=== PATIENT | female | born 1945 | race Caucasian/White ===

== ENCOUNTER 2016-06-26 13:14 | Outpatient (RCR) | payer MEDICARE, OTHER ==
--- OUTSIDE RECORDS SUMMARY | 2016-06-26 13:18 | XMS REPORT | Continuity of Care Document ---
Author Author [facility] Organization [facility] Address Unknown Phone Unavailable Allergies Medications Problems Date Dx Coded Attending Type Code Diagnosis Diagnosed By 03/17/2014 Ot 204.10 03/17/2014 Ot 287.5 03/17/2014 Ot V58.66 03/17/2014 Ot V58.67 03/17/2014 Ot V58.69 03/17/2014 Ot 204.10 03/17/2014 Ot 287.5 03/17/2014 Ot V58.66 03/17/2014 Ot V58.67 03/17/2014 Ot V58.69 03/17/2014 Ot 204.10 03/17/2014 Ot 287.5 03/17/2014 Ot V58.66 03/17/2014 Ot V58.67 03/17/2014 Ot V58.69 03/17/2014 Ot 204.10 03/17/2014 Ot 287.5 03/17/2014 Ot V58.66 03/17/2014 Ot V58.67 03/17/2014 Ot V58.69 03/17/2014 Ot 204.10 03/17/2014 Ot 287.5 03/17/2014 Ot V58.66 03/17/2014 Ot V58.67 03/17/2014 Ot V58.69 03/17/2014 Ot 204.10 03/17/2014 Ot 287.5 03/17/2014 Ot V15.82 03/17/2014 Ot V58.66 03/17/2014 Ot V58.67 03/17/2014 Ot V58.69 03/17/2014 Ot 204.10 03/17/2014 Ot 250.00 03/17/2014 Ot 287.5 03/17/2014 Ot V58.66 03/17/2014 Ot V58.67 03/17/2014 Ot V58.69 03/17/2014 Ot 204.10 03/17/2014 Ot 287.5 03/17/2014 Ot V58.66 03/17/2014 Ot V58.67 03/17/2014 Ot V58.69 03/17/2014 Ot 204.10 03/17/2014 Ot 287.5 03/17/2014 Ot V58.66 03/17/2014 Ot V58.67 03/17/2014 Ot V58.69 03/17/2014 Ot 204.10 03/17/2014 Ot 287.5 03/17/2014 Ot V58.66 03/17/2014 Ot V58.67 03/17/2014 Ot V58.69 03/17/2014 MARVIN, BOBAN N Ot 204.10 03/17/2014 MARVIN, BOBAN N Ot 250.00 03/17/2014 MARVIN, BOBAN N Ot 287.5 03/17/2014 MARVIN, BOBAN N Ot 356.9 03/17/2014 MARVIN, BOBAN N Ot 401.9 03/17/2014 MARVIN, BOBAN N Ot V58.66 03/17/2014 MARVIN, BOBAN N Ot V58.67 03/17/2014 MARVIN, BOBAN N Ot V58.69 03/17/2014 MARVIN, BOBAN N Ot 204.10 03/17/2014 MARVIN, BOBAN N Ot 250.00 03/17/2014 MARVIN, BOBAN N Ot 287.5 03/17/2014 MARVIN, BOBAN N Ot 356.9 03/17/2014 MARVIN, BOBAN N Ot 401.9 03/17/2014 MARVIN, BOBAN N Ot V58.66 03/17/2014 MARVIN, BOBAN N Ot V58.67 03/17/2014 MARVIN, BOBAN N Ot V58.69 03/20/2014 MARVIN, BOBAN N Ot 204.10 03/20/2014 MARVIN, BOBAN N Ot 250.00 03/20/2014 MARVIN, BOBAN N Ot 287.5 03/20/2014 MARVIN, BOBAN N Ot 356.9 03/20/2014 MARVIN, BOBAN N Ot V58.67 03/20/2014 MARVIN, BOBAN N Ot V58.69 04/13/2014 MARVIN, BOBAN N Ot 204.10 04/13/2014 MARVIN, BOBAN N Ot 250.00 04/13/2014 MARVIN, BOBAN N Ot 287.5 04/13/2014 MARVIN, BOBAN N Ot 356.9 04/13/2014 MARVIN, BOBAN N Ot V58.67 04/13/2014 MARVIN, BOBAN N Ot V58.69 04/27/2014 MARVIN, BOBAN N Ot 204.10 04/27/2014 MARVIN, BOBAN N Ot 250.00 04/27/2014 MARVIN, BOBAN N Ot 287.5 04/27/2014 MARVIN, BOBAN N Ot 356.9 04/27/2014 MARVIN, BOBAN N Ot V58.67 04/27/2014 MARVIN, BOBAN N Ot V58.69 09/09/2014 MARVIN, BOBAN N Ot 204.10 09/09/2014 MARVIN, BOBAN N Ot 250.00 09/09/2014 MARVIN, BOBAN N Ot 287.5 09/09/2014 MARVIN, BOBAN N Ot 356.9 09/09/2014 MARVIN, BOBAN N Ot V58.67 09/09/2014 MARVIN, BOBAN N Ot V58.69 09/09/2014 MARVIN, BOBAN N Ot 204.10 09/09/2014 MARVIN, BOBAN N Ot 250.00 09/09/2014 MARVIN, BOBAN N Ot 287.5 09/09/2014 MARVIN, BOBAN N Ot 356.9 09/09/2014 MARVIN, BOBAN N Ot V58.67 09/09/2014 MARVIN, BOBAN N Ot V58.69 09/28/2014 MARVIN, BOBAN N Ot 204.10 09/28/2014 MARVIN, BOBAN N Ot 250.00 09/28/2014 MARVIN, BOBAN N Ot 287.5 09/28/2014 MARVIN, BOBAN N Ot 356.9 09/28/2014 MARVIN, BOBAN N Ot V58.67 09/28/2014 MARVIN, BOBAN N Ot V58.69 10/14/2014 MARVIN, BOBAN N Ot 204.10 10/14/2014 MARVIN, BOBAN N Ot 250.00 10/14/2014 MARVIN, BOBAN N Ot 287.5 10/14/2014 MARVIN, BOBAN N Ot 356.9 10/14/2014 MARVIN, BOBAN N Ot V58.67 10/14/2014 MARVIN, BOBAN N Ot V58.69 10/11/2015 MARVIN, BOBAN N Ot C91.10 CHRONIC LYMPHOCYTIC LEUK OF B-CELL TYPE 10/11/2015 MARVINTOÑO KELLOGG N Ot D69.6 THROMBOCYTOPENIA, UNSPECIFIED 10/11/2015 MARVINTOÑO N Ot E11.9 TYPE 2 DIABETES MELLITUS WITHOUT COMPLIC 10/11/2015 MARVINTOÑO N Ot E78.0 PURE HYPERCHOLESTEROLEMIA 10/11/2015 MARVINTOÑO N Ot I10 ESSENTIAL (PRIMARY) HYPERTENSION 10/11/2015 MARVINNORANIKO N Ot Z79.899 OTHER RESIDENTIAL (CURRENT) DRUG THERAPY 10/11/2015 TOÑO WONG N Ot C91.10 CHRONIC LYMPHOCYTIC LEUK OF B-CELL TYPE 10/11/2015 MARVINTOÑO N Ot D69.6 THROMBOCYTOPENIA, UNSPECIFIED 10/11/2015 MARVINNORANIKO N Ot E11.9 TYPE 2 DIABETES MELLITUS WITHOUT COMPLIC 10/11/2015 MARVINTOÑO N Ot E78.0 PURE HYPERCHOLESTEROLEMIA 10/11/2015 MARVIN BOBAN N Ot I10 ESSENTIAL (PRIMARY) HYPERTENSION 10/11/2015 MARVINNORANIKO N Ot 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 11/18/2015 TOÑO WONG N Ot C91.10 CHRONIC LYMPHOCYTIC LEUK OF B-CELL TYPE 11/18/2015 MARVINTOÑO N Ot D69.6 THROMBOCYTOPENIA, UNSPECIFIED 11/18/2015 MARVINTOÑO N Ot E11.9 TYPE 2 DIABETES MELLITUS WITHOUT COMPLIC 11/18/2015 MARVINTOÑO N Ot E78.0 PURE HYPERCHOLESTEROLEMIA 11/18/2015 MARVINTOÑO N Ot I10 ESSENTIAL (PRIMARY) HYPERTENSION 11/18/2015 MARVIN TOÑO N Ot Z79.899 OTHER RESIDENTIAL (CURRENT) DRUG THERAPY 11/23/2015 TOÑO WONG N Ot C91.10 CHRONIC LYMPHOCYTIC LEUK OF B-CELL TYPE 11/23/2015 MARVINTOÑO N Ot D69.6 THROMBOCYTOPENIA, UNSPECIFIED 11/23/2015 MARVINNORANIKO N Ot E11.9 TYPE 2 DIABETES MELLITUS WITHOUT COMPLIC 11/23/2015 MARVINNORAAN N Ot E78.0 PURE HYPERCHOLESTEROLEMIA 11/23/2015 MARVIN BOBAN N Ot I10 ESSENTIAL (PRIMARY) HYPERTENSION 11/23/2015 MARVIN NORAAN N Ot Z79.899 OTHER RESIDENTIAL (CURRENT) DRUG THERAPY 12/17/2015 TOÑO WONG N Ot C91.10 CHRONIC LYMPHOCYTIC LEUK OF B-CELL TYPE 12/17/2015 MARVINTOÑO N Ot D69.6 THROMBOCYTOPENIA, UNSPECIFIED 12/17/2015 MARVINNORAAN N Ot E11.9 TYPE 2 DIABETES MELLITUS WITHOUT COMPLIC 12/17/2015 MARVINTOÑO N Ot E78.0 PURE HYPERCHOLESTEROLEMIA 12/17/2015 MARVINTOÑO N Ot I10 ESSENTIAL (PRIMARY) HYPERTENSION 12/17/2015 MARVINTOÑO N Ot Z79.899 OTHER RESIDENTIAL (CURRENT) DRUG THERAPY 12/30/2015 MARVINTOÑO KELLOGG N Ot C91.10 CHRONIC LYMPHOCYTIC LEUK OF B-CELL TYPE 12/30/2015 MARVINTOÑO N Ot D69.6 THROMBOCYTOPENIA, UNSPECIFIED 12/30/2015 MARVINTOÑO N Ot E11.9 TYPE 2 DIABETES MELLITUS WITHOUT COMPLIC 12/30/2015 MARVINTOÑO N Ot E78.0 PURE HYPERCHOLESTEROLEMIA 12/30/2015 MARVIN, BOBAN N Ot I10 ESSENTIAL (PRIMARY) HYPERTENSION 12/30/2015 MARVINTOÑO N Ot Z79.899 OTHER RESIDENTIAL (CURRENT) DRUG THERAPY 01/07/2016 TOÑO WONG N Ot C91.10 CHRONIC LYMPHOCYTIC LEUK OF B-CELL TYPE 01/07/2016 MARVINTOÑO N Ot D69.6 THROMBOCYTOPENIA, UNSPECIFIED 01/07/2016 MARVIN BOBAN N Ot E11.9 TYPE 2 DIABETES MELLITUS WITHOUT COMPLIC 01/07/2016 MARVINTOÑO N Ot E78.0 PURE HYPERCHOLESTEROLEMIA 01/07/2016 MARVIN BOBNIKO N Ot I10 ESSENTIAL (PRIMARY) HYPERTENSION 01/07/2016 MARVINTOÑO N Ot Z79.899 OTHER RESIDENTIAL (CURRENT) DRUG THERAPY 01/10/2016 MARVINTOÑO N Ot C91.10 CHRONIC LYMPHOCYTIC LEUK OF B-CELL TYPE 01/10/2016 MARVINTOÑO N Ot D69.6 THROMBOCYTOPENIA, UNSPECIFIED 01/10/2016 MARVIN BOBAN N Ot E11.9 TYPE 2 DIABETES MELLITUS WITHOUT COMPLIC 01/10/2016 MARVIN BOBAN N Ot E78.0 PURE HYPERCHOLESTEROLEMIA 01/10/2016 MARVIN BOBAN N Ot I10 ESSENTIAL (PRIMARY) HYPERTENSION 01/10/2016 TOÑO WONG N Ot Z79.899 OTHER RESIDENTIAL (CURRENT) DRUG THERAPY 04/03/2016 TOÑO WONG N Ot C91.10 CHRONIC LYMPHOCYTIC LEUK OF B-CELL TYPE 04/03/2016 MARVINTOÑO N Ot D69.6 THROMBOCYTOPENIA, UNSPECIFIED 04/03/2016 MARVINTOÑO N Ot E11.9 TYPE 2 DIABETES MELLITUS WITHOUT COMPLIC 04/03/2016 MARVINTOÑO N Ot E78.00 PURE HYPERCHOLESTEROLEMIA, UNSPECIFIED 04/03/2016 MARVINTOÑO N Ot I10 ESSENTIAL (PRIMARY) HYPERTENSION 04/03/2016 MARVINTOÑO N Ot 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 04/18/2016 TOÑO WONG N Ot C91.10 CHRONIC LYMPHOCYTIC LEUK OF B-CELL TYPE 04/18/2016 MARVINTOÑO N Ot D69.6 THROMBOCYTOPENIA, UNSPECIFIED 04/18/2016 MARVINTOÑO N Ot E11.9 TYPE 2 DIABETES MELLITUS WITHOUT COMPLIC 04/18/2016 MARVINTOÑO N Ot E78.00 PURE HYPERCHOLESTEROLEMIA, UNSPECIFIED 04/18/2016 MARVINTOÑO N Ot I10 ESSENTIAL (PRIMARY) HYPERTENSION 04/18/2016 MARVINTOÑO N Ot Z79.899 OTHER RESIDENTIAL (CURRENT) DRUG THERAPY 04/21/2016 TOÑO WONG N Ot C91.10 CHRONIC LYMPHOCYTIC LEUK OF B-CELL TYPE 04/21/2016 MARVINTOÑO N Ot D69.6 THROMBOCYTOPENIA, UNSPECIFIED 04/21/2016 MARVINTOÑO N Ot E11.9 TYPE 2 DIABETES MELLITUS WITHOUT COMPLIC 04/21/2016 MARVINTOÑO N Ot E78.00 PURE HYPERCHOLESTEROLEMIA, UNSPECIFIED 04/21/2016 MARVINTOÑO N Ot I10 ESSENTIAL (PRIMARY) HYPERTENSION 04/21/2016 MARVINTOÑO N Ot 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 Visit Date/Time Discharge Status Pt. Type Provider Facility Loc./Unit Complaint [id number] 09/01/2014 12:57:00 2014 23:59:59 CLS Outpatient TOÑO WONG [facility] [id number] 03/17/2014 10:03:00 2013 23:59:59 CLS Outpatient TOÑO WONG N [facility] FS [id number] 09/09/2013 09:33:00 2013 23:59:59 CLS Outpatient TOÑO WONG N [facility] FS [id number] 03/11/2013 14:14:00 2012 23:59:59 CLS Outpatient TOÑO WONG N [facility] FS [id number] 06/26/2016 08:37:00 PEN Preadmit TOÑO WONG N [facility] ONC [id number] 03/28/2016 11:28:00 ACT Outpatient TOÑO WONG N [facility] FS [id number] 12/28/2015 14:33:00 ACT Outpatient TOÑO WONG N [facility] FS [id number] 10/05/2015 16:31:00 ACT Outpatient TOÑO WONG N [facility] FS [id number] 03/30/2015 13:49:00 ACT Outpatient TOÑO WONG N [facility] FS [id number] 08/20/2012 13:36:00 Document Registration [id number] 02/20/2012 14:19:00 Document Registration [id number] 10/03/2011 13:35:00 Document Registration [id number] 03/28/2011 14:53:00 Document Registration [id number] 09/20/2010 15:08:00 Document Registration [id number] 03/22/2010 13:53:00 Document Registration [id number] 09/21/2009 14:17:00 Document Registration [id number] 06/01/2009 11:04:00 Document Registration [id number] 02/23/2009 14:32:00 Document Registration [id number] 11/24/2008 16:16:00 Document Registration
[2016-06-26 13:31] LABS: MEAN CORPUSCULAR HEMOGLOBIN 29 PG (25-34); MEAN CORPUSCULAR HGB CONC 33 G/DL (32-36); MEAN CORPUSCULAR VOLUME 87 FL (80-99); MEAN PLATELET VOLUME 9.8 FL (7.4-10.4); PLATELET COUNT 114 10^3/uL (130-400); RED CELL DISTRIBUTION WIDTH 13.4 % (10.0-14.5)
[2016-06-26 13:42] LABS: WHITE BLOOD COUNT 42.2 10^3/uL (4.3-11.0)
[2016-06-26 14:20] LABS: ALANINE AMINOTRANSFERASE 25 U/L (0-55); ALBUMIN 4.1 G/DL (3.2-4.5); ANION GAP 10 MMOL/L (5-14); ASPARTATE AMINO TRANSFERASE 38 U/L (5-34); BILIRUBIN,TOTAL 0.6 MG/DL (0.1-1.0); BLOOD UREA NITROGEN 21 MG/DL (7-18); BUN/CREATININE RATIO 27; CALCIUM 8.8 MG/DL (8.5-10.1); CARBON DIOXIDE 23 MMOL/L (21-32); CHLORIDE 108 MMOL/L (98-107); CREATININE SERUM 0.78 MG/DL (0.60-1.30); GFR ESTIMATED > 60; GLUCOSE 108 MG/DL (70-105); LACTATE DEHYDROGENASE 392 U/L (125-220); SODIUM 141 MMOL/L (135-145); TOTAL PROTEIN 5.8 G/DL (6.4-8.2)
[2016-06-26 14:24] LABS: POTASSIUM 5.1 MMOL/L (3.6-5.0)
[2016-06-26 15:46] LABS: ATYPICAL LYMPHOCYTES 72 %; BAND NEUTROPHILS 0 %; BASOPHILS % (MANUAL) 0 %; EOSINOPHILS % (MANUAL) 1 %; LYMPHOCYTES % (MANUAL) 5 %; NEUTROPHILS % (MANUAL) 20 %; PATH WILL NEED TO REVIEW SMEAR PATH TO REVIEW
[2016-06-27 07:31] LABS: RETICULOCYTE % 0.91 % (0.50-2.40)
== END 2016-09-24 | disposition home or self-care (01) ==
LOC: ONC 13:14
PROVIDERS: ATTEND Internal Medicine Hematology & Oncology
DX: C91.10 Chronic lymphocytic leukemia of B-cell type not having achieved remission (principal); D69.6 Thrombocytopenia, unspecified; E11.9 Type 2 diabetes mellitus without complications; I10 Essential (primary) hypertension; E78.00 Pure hypercholesterolemia, unspecified; Z79.899 Other long term (current) drug therapy
CPT/HCPCS: 36415; 80053; 83615; 85007; 85025; 85027; 85045; 99213

== ENCOUNTER → 2016-09-19 | Outpatient (CLI) | payer MEDICARE, OTHER | LOC: FS 10:49 | PROVIDERS: ATTEND Internal Medicine Hematology & Oncology | DX: C91.10 Chronic lymphocytic leukemia of B-cell type not having achieved remission (principal); D69.6 Thrombocytopenia, unspecified; E11.40 Type 2 diabetes mellitus with diabetic neuropathy, unspecified; I10 Essential (primary) hypertension; E78.00 Pure hypercholesterolemia, unspecified; Z79.899 Other long term (current) drug therapy | CPT/HCPCS: 99213 ==

== ENCOUNTER 2017-02-06 09:36 | Outpatient (RCR) | payer MEDICARE, OTHER | END 2017-05-07 | disposition home or self-care (01) | LOC: ONC 09:36 | PROVIDERS: ATTEND Internal Medicine Hematology & Oncology | DX: C91.10 Chronic lymphocytic leukemia of B-cell type not having achieved remission (principal); D69.6 Thrombocytopenia, unspecified; E11.40 Type 2 diabetes mellitus with diabetic neuropathy, unspecified; I10 Essential (primary) hypertension; E78.00 Pure hypercholesterolemia, unspecified; Z79.899 Other long term (current) drug therapy | CPT/HCPCS: 99213 ==

== ENCOUNTER 2017-08-01 10:34 | Outpatient (RCR) | payer MEDICARE, OTHER ==
[2017-08-01 11:01] LABS: BASOPHILS # (AUTO) 0.1 10^3/uL (0.0-0.1); BASOPHILS % (AUTO) 0 % (0-10); EOSINOPHILS # (AUTO) 0.4 10^3/uL (0.0-0.3); EOSINOPHILS % (AUTO) 1 % (0-10); HEMATOCRIT 43 % (35-52); HEMOGLOBIN 13.9 G/DL (11.5-16.0); LYMPHOCYTES # (AUTO) 27.2 X 10^3 (1.0-4.0); LYMPHOCYTES % (AUTO) 81 % (12-44); MEAN CORPUSCULAR HEMOGLOBIN 28 PG (25-34); MEAN CORPUSCULAR HGB CONC 33 G/DL (32-36); MEAN CORPUSCULAR VOLUME 86 FL (80-99); MONOCYTES # (AUTO) 1.6 X 10^3 (0.0-1.0); MONOCYTES % (AUTO) 5 % (0-12); NEUTROPHILS # (AUTO) 4.2 X 10^3 (1.8-7.8); NEUTROPHILS % (AUTO) 12 % (42-75); PLATELET COUNT 90 10^3/uL (130-400); RED BLOOD COUNT 4.97 10^6/uL (4.35-5.85); RED CELL DISTRIBUTION WIDTH 13.8 % (10.0-14.5)
[2017-08-01 11:04] LABS: WHITE BLOOD COUNT 32.3 10^3/uL (4.3-11.0)
[2017-08-01 11:16] LABS: ALANINE AMINOTRANSFERASE 20 U/L (0-55); ALBUMIN 4.2 GM/DL (3.2-4.5); ALKALINE PHOSPHATASE 69 U/L (40-136); BILIRUBIN,TOTAL 0.8 MG/DL (0.1-1.0); BUN/CREATININE RATIO 28; CARBON DIOXIDE 30 MMOL/L (21-32); CHLORIDE 108 MMOL/L (98-107); CREATININE SERUM 0.68 MG/DL (0.60-1.30); GFR ESTIMATED > 60; GLUCOSE 113 MG/DL (70-105); POTASSIUM 4.6 MMOL/L (3.6-5.0); SODIUM 143 MMOL/L (135-145); TOTAL PROTEIN 5.7 GM/DL (6.4-8.2)
== END 2017-10-30 | disposition home or self-care (01) ==
LOC: ONC 10:34
PROVIDERS: ATTEND Internal Medicine Hematology & Oncology
DX: C91.10 Chronic lymphocytic leukemia of B-cell type not having achieved remission (principal); D69.6 Thrombocytopenia, unspecified; E11.40 Type 2 diabetes mellitus with diabetic neuropathy, unspecified; I10 Essential (primary) hypertension; E78.00 Pure hypercholesterolemia, unspecified; Z79.899 Other long term (current) drug therapy
CPT/HCPCS: 36415; 80053; 82784; 83615; 85025; 99213

== ENCOUNTER 2018-02-06 12:58 | Outpatient (RCR) | payer MEDICARE, OTHER ==
[2018-02-06 12:58] LABS: BASOPHILS # (AUTO) 0.1 10^3/uL (0.0-0.1); BASOPHILS % (AUTO) 0 % (0-10); EOSINOPHILS # (AUTO) 0.2 10^3/uL (0.0-0.3); EOSINOPHILS % (AUTO) 1 % (0-10); HEMATOCRIT 41 % (35-52); HEMOGLOBIN 13.4 G/DL (11.5-16.0); LYMPHOCYTES # (AUTO) 27.3 X 10^3 (1.0-4.0); LYMPHOCYTES % (AUTO) 83 % (12-44); MEAN CORPUSCULAR HEMOGLOBIN 28 PG (25-34); MEAN CORPUSCULAR HGB CONC 33 G/DL (32-36); MEAN CORPUSCULAR VOLUME 86 FL (80-99); MEAN PLATELET VOLUME 10.3 FL (7.4-10.4); MONOCYTES # (AUTO) 1.4 X 10^3 (0.0-1.0); MONOCYTES % (AUTO) 4 % (0-12); NEUTROPHILS # (AUTO) 3.9 X 10^3 (1.8-7.8); NEUTROPHILS % (AUTO) 12 % (42-75); PLATELET COUNT 107 10^3/uL (130-400); RED BLOOD COUNT 4.77 10^6/uL (4.35-5.85)
[2018-02-06 13:01] LABS: WHITE BLOOD COUNT 32.9 10^3/uL (4.3-11.0)
[2018-02-06 13:21] LABS: ALANINE AMINOTRANSFERASE 23 U/L (0-55); ALBUMIN 4.1 GM/DL (3.2-4.5); ALKALINE PHOSPHATASE 75 U/L (40-136); BILIRUBIN,TOTAL 0.7 MG/DL (0.1-1.0); BUN/CREATININE RATIO 27; CARBON DIOXIDE 26 MMOL/L (21-32); CHLORIDE 107 MMOL/L (98-107); CREATININE SERUM 0.74 MG/DL (0.60-1.30); GFR ESTIMATED > 60; GLUCOSE 82 MG/DL (70-105); POTASSIUM 4.6 MMOL/L (3.6-5.0); SODIUM 141 MMOL/L (135-145); TOTAL PROTEIN 5.6 GM/DL (6.4-8.2)
== END 2018-05-07 | disposition home or self-care (01) ==
LOC: ONC 12:58
PROVIDERS: ATTEND Internal Medicine Hematology & Oncology
DX: C91.10 Chronic lymphocytic leukemia of B-cell type not having achieved remission (principal); D69.6 Thrombocytopenia, unspecified; E11.40 Type 2 diabetes mellitus with diabetic neuropathy, unspecified; I10 Essential (primary) hypertension; E78.00 Pure hypercholesterolemia, unspecified; Z79.899 Other long term (current) drug therapy
CPT/HCPCS: 36415; 80053; 82784; 83615; 85025; 99213

== ENCOUNTER → 2018-08-07 | Outpatient (CLI) | payer MEDICARE, OTHER ==
[2018-08-07 10:33] LABS: BASOPHILS # (AUTO) 0.1 10^3/uL (0.0-0.1); BASOPHILS % (AUTO) 0 % (0-10); EOSINOPHILS # (AUTO) 0.6 10^3/uL (0.0-0.3); EOSINOPHILS % (AUTO) 2 % (0-10); HEMATOCRIT 43 % (35-52); HEMOGLOBIN 13.6 G/DL (11.5-16.0); LYMPHOCYTES # (AUTO) 31.5 X 10^3 (1.0-4.0); LYMPHOCYTES % (AUTO) 84 % (12-44); MEAN CORPUSCULAR HEMOGLOBIN 28 PG (25-34); MEAN CORPUSCULAR HGB CONC 32 G/DL (32-36); MEAN CORPUSCULAR VOLUME 87 FL (80-99); MEAN PLATELET VOLUME 10.2 FL (7.4-10.4); MONOCYTES # (AUTO) 1.5 X 10^3 (0.0-1.0); MONOCYTES % (AUTO) 4 % (0-12); NEUTROPHILS # (AUTO) 3.9 X 10^3 (1.8-7.8); NEUTROPHILS % (AUTO) 10 % (42-75); PLATELET COUNT 96 10^3/uL (130-400); RED CELL DISTRIBUTION WIDTH 14.2 % (10.0-14.5)
[2018-08-07 10:34] LABS: WHITE BLOOD COUNT 37.5 10^3/uL (4.3-11.0)
[2018-08-07 10:55] LABS: ALANINE AMINOTRANSFERASE 20 U/L (0-55); ALBUMIN 4.2 GM/DL (3.2-4.5); ALKALINE PHOSPHATASE 74 U/L (40-136); BILIRUBIN,TOTAL 0.8 MG/DL (0.1-1.0); BUN/CREATININE RATIO 26; CALCIUM 10.2 MG/DL (8.5-10.1); CARBON DIOXIDE 29 MMOL/L (21-32); CHLORIDE 107 MMOL/L (98-107); CREATININE SERUM 0.82 MG/DL (0.60-1.30); GFR ESTIMATED > 60; GLUCOSE 196 MG/DL (70-105); POTASSIUM 4.9 MMOL/L (3.6-5.0); SODIUM 147 MMOL/L (135-145)
== END ==
LOC: EDSTATUS 05-08 10:46 → ONC 10:53
PROVIDERS: ATTEND Internal Medicine Hematology & Oncology
DX: C91.10 Chronic lymphocytic leukemia of B-cell type not having achieved remission (principal); D69.6 Thrombocytopenia, unspecified; E11.40 Type 2 diabetes mellitus with diabetic neuropathy, unspecified; I10 Essential (primary) hypertension; E78.00 Pure hypercholesterolemia, unspecified; Z79.899 Other long term (current) drug therapy
CPT/HCPCS: 36415; 80053; 83615; 85025; 99213

== ENCOUNTER → 2019-02-04 | Outpatient (CLI) | payer MEDICARE, OTHER | LOC: ONC 09:49 | PROVIDERS: ATTEND Internal Medicine Hematology & Oncology | DX: C91.10 Chronic lymphocytic leukemia of B-cell type not having achieved remission (principal); D69.6 Thrombocytopenia, unspecified; E11.40 Type 2 diabetes mellitus with diabetic neuropathy, unspecified; I10 Essential (primary) hypertension; E78.00 Pure hypercholesterolemia, unspecified; Z79.899 Other long term (current) drug therapy | CPT/HCPCS: 99213 ==

== ENCOUNTER → 2019-10-16 | Outpatient (CLI) | payer MEDICARE, OTHER ==
[2019-10-16 13:04] LABS: BASOPHILS # (AUTO) 0.1 10^3/uL (0.0-0.1); BASOPHILS % (AUTO) 0 % (0-10); EOSINOPHILS # (AUTO) 0.2 10^3/uL (0.0-0.3); EOSINOPHILS % (AUTO) 1 % (0-10); HEMATOCRIT 41 % (35-52); LYMPHOCYTES # (AUTO) 31.7 X 10^3 (1.0-4.0); LYMPHOCYTES % (AUTO) 85 % (12-44); MEAN CORPUSCULAR HEMOGLOBIN 27 PG (25-34); MEAN CORPUSCULAR HGB CONC 32 G/DL (32-36); MEAN CORPUSCULAR VOLUME 85 FL (80-99); MEAN PLATELET VOLUME 10.4 FL (7.4-10.4); MONOCYTES # (AUTO) 1.7 X 10^3 (0.0-1.0); MONOCYTES % (AUTO) 5 % (0-12); NEUTROPHILS # (AUTO) 3.8 X 10^3 (1.8-7.8); NEUTROPHILS % (AUTO) 10 % (42-75); PLATELET COUNT 86 10^3/uL (130-400)
[2019-10-16 13:08] LABS: WHITE BLOOD COUNT 37.5 10^3/uL (4.3-11.0)
[2019-10-16 13:26] LABS: ALANINE AMINOTRANSFERASE 21 U/L (0-55); ALBUMIN 4.1 GM/DL (3.2-4.5); ALKALINE PHOSPHATASE 83 U/L (40-136); BILIRUBIN,TOTAL 0.6 MG/DL (0.1-1.0); BUN/CREATININE RATIO 22; CALCIUM 8.8 MG/DL (8.5-10.1); CARBON DIOXIDE 29 MMOL/L (21-32); CHLORIDE 106 MMOL/L (98-107); CREATININE SERUM 0.79 MG/DL (0.60-1.30); GFR ESTIMATED > 60; GLUCOSE 170 MG/DL (70-105); POTASSIUM 4.2 MMOL/L (3.6-5.0); SODIUM 142 MMOL/L (135-145)
== END ==
LOC: ONC 12:47
PROVIDERS: ATTEND Internal Medicine Hematology & Oncology
DX: C91.10 Chronic lymphocytic leukemia of B-cell type not having achieved remission (principal); D69.6 Thrombocytopenia, unspecified; E11.42 Type 2 diabetes mellitus with diabetic polyneuropathy
CPT/HCPCS: 80053; 83615; 85025; G0463; 99213

== ENCOUNTER → 2020-03-01 | Outpatient (CLI) | payer MEDICARE, OTHER ==
[2020-03-01 13:02] LABS: BASOPHILS # (AUTO) 0.1 10^3/uL (0.0-0.1); BASOPHILS % (AUTO) 0 % (0-10); HEMATOCRIT 43 % (35-52); HEMOGLOBIN 13.6 g/dL (11.5-16.0); LYMPHOCYTES # (AUTO) 33.1 10^3/uL (1.0-4.0); MEAN CORPUSCULAR HEMOGLOBIN 28 pg (25-34); MEAN CORPUSCULAR HGB CONC 32 g/dL (32-36)
[2020-03-01 13:04] LABS: EOSINOPHILS # (AUTO) 0.2 10^3/uL (0.0-0.3); EOSINOPHILS % (AUTO) 1 % (0-10); LYMPHOCYTES % (AUTO) 84 % (12-44); MEAN CORPUSCULAR VOLUME 88 fL (80-99); MEAN PLATELET VOLUME 10.4 fL (9.0-12.2); MONOCYTES # (AUTO) 1.8 10^3/uL (0.0-1.0); MONOCYTES % (AUTO) 5 % (0-12); NEUTROPHILS % (AUTO) 10 % (42-75)
[2020-03-01 13:11] LABS: WHITE BLOOD COUNT 39.3 10^3/uL (4.3-11.0)
[2020-03-01 13:12] LABS: PLATELET COUNT 95 10^3/uL (130-400)
[2020-03-01 13:21] LABS: ALANINE AMINOTRANSFERASE 25 U/L (0-55); ALBUMIN 4.2 GM/DL (3.2-4.5); ALKALINE PHOSPHATASE 90 U/L (40-136); BILIRUBIN,TOTAL 0.7 MG/DL (0.1-1.0); BUN/CREATININE RATIO 26; CALCIUM 8.9 MG/DL (8.5-10.1); CARBON DIOXIDE 26 MMOL/L (21-32); CHLORIDE 105 MMOL/L (98-107); CREATININE SERUM 0.77 MG/DL (0.60-1.30); GFR ESTIMATED > 60; GLUCOSE 130 MG/DL (70-105); POTASSIUM 4.4 MMOL/L (3.6-5.0); SODIUM 142 MMOL/L (135-145); TOTAL PROTEIN 6.2 GM/DL (6.4-8.2)
== END ==
LOC: ONC 12:50
PROVIDERS: ATTEND Internal Medicine Hematology & Oncology
DX: C91.10 Chronic lymphocytic leukemia of B-cell type not having achieved remission (principal)
CPT/HCPCS: 80053; 83615; 85025; G0463; 99213

== ENCOUNTER → 2020-08-30 | Outpatient (CLI) | payer MEDICARE, OTHER ==
[2020-08-30 13:20] LABS: BASOPHILS # (AUTO) 0.1 10^3/uL (0.0-0.1); BASOPHILS % (AUTO) 0 % (0-10); EOSINOPHILS # (AUTO) 0.3 10^3/uL (0.0-0.3); EOSINOPHILS % (AUTO) 1 % (0-10); HEMATOCRIT 44 % (35-52); HEMOGLOBIN 13.9 g/dL (11.5-16.0); LYMPHOCYTES # (AUTO) 23.9 10^3/uL (1.0-4.0); LYMPHOCYTES % (AUTO) 78 % (12-44); MEAN CORPUSCULAR HEMOGLOBIN 27 pg (25-34); MEAN CORPUSCULAR HGB CONC 31 g/dL (32-36); MEAN CORPUSCULAR VOLUME 87 fL (80-99); MEAN PLATELET VOLUME 10.5 fL (9.0-12.2); MONOCYTES # (AUTO) 3.3 10^3/uL (0.0-1.0); MONOCYTES % (AUTO) 11 % (0-12); NEUTROPHILS # (AUTO) 3.1 10^3/uL (1.8-7.8); NEUTROPHILS % (AUTO) 10 % (42-75); PLATELET COUNT 79 10^3/uL (130-400)
[2020-08-30 13:23] LABS: WHITE BLOOD COUNT 30.8 10^3/uL (4.3-11.0)
[2020-08-30 13:39] LABS: ALANINE AMINOTRANSFERASE 22 U/L (0-55); ALBUMIN 4.2 GM/DL (3.2-4.5); ALKALINE PHOSPHATASE 85 U/L (40-136); BILIRUBIN,TOTAL 0.7 MG/DL (0.1-1.0); BUN/CREATININE RATIO 19; CALCIUM 8.7 MG/DL (8.5-10.1); CARBON DIOXIDE 27 MMOL/L (21-32); CHLORIDE 105 MMOL/L (98-107); CREATININE SERUM 0.77 MG/DL (0.60-1.30); GFR ESTIMATED > 60; GLUCOSE 186 MG/DL (70-105); POTASSIUM 4.4 MMOL/L (3.6-5.0); SODIUM 141 MMOL/L (135-145); TOTAL PROTEIN 6.1 GM/DL (6.4-8.2)
== END ==
LOC: ONC 12:34
PROVIDERS: ATTEND Internal Medicine Hematology & Oncology
DX: C91.10 Chronic lymphocytic leukemia of B-cell type not having achieved remission (principal); D69.59 Other secondary thrombocytopenia; E11.9 Type 2 diabetes mellitus without complications; E78.00 Pure hypercholesterolemia, unspecified; I10 Essential (primary) hypertension
CPT/HCPCS: 80053; 83615; 85025; G0463; 99213

== ENCOUNTER → 2021-01-07 | Outpatient (CLI) | payer MEDICARE, OTHER ==
[2021-01-07 13:57] LABS: BASOPHILS % (AUTO) 0 % (0-10); EOSINOPHILS # (AUTO) 0.1 10^3/uL (0.0-0.3); EOSINOPHILS % (AUTO) 2 % (0-10); HEMATOCRIT 43 % (35-52); LYMPHOCYTES # (AUTO) 2.3 10^3/uL (1.0-4.0); LYMPHOCYTES % (AUTO) 35 % (12-44); MEAN CORPUSCULAR HEMOGLOBIN 26 pg (25-34); MEAN CORPUSCULAR HGB CONC 30 g/dL (32-36); MEAN CORPUSCULAR VOLUME 87 fL (80-99); MEAN PLATELET VOLUME 9.5 fL (9.0-12.2); MONOCYTES # (AUTO) 0.8 10^3/uL (0.0-1.0); MONOCYTES % (AUTO) 11 % (0-12); NEUTROPHILS # (AUTO) 3.4 10^3/uL (1.8-7.8); NEUTROPHILS % (AUTO) 51 % (42-75); PLATELET COUNT 133 10^3/uL (130-400); WHITE BLOOD COUNT 6.7 10^3/uL (4.3-11.0)
[2021-01-07 14:29] LABS: BASOPHILS % (AUTO) 1 % (0-10); EOSINOPHILS # (AUTO) 0.2 10^3/uL (0.0-0.3); EOSINOPHILS % (AUTO) 3 % (0-10); HEMATOCRIT 43 % (35-52); HEMOGLOBIN 13.1 g/dL (11.5-16.0); LYMPHOCYTES # (AUTO) 2.6 10^3/uL (1.0-4.0); LYMPHOCYTES % (AUTO) 40 % (12-44); MEAN CORPUSCULAR HEMOGLOBIN 26 pg (25-34); MEAN CORPUSCULAR HGB CONC 31 g/dL (32-36); MEAN CORPUSCULAR VOLUME 86 fL (80-99); MEAN PLATELET VOLUME 10.2 fL (9.0-12.2); MONOCYTES # (AUTO) 0.8 10^3/uL (0.0-1.0); MONOCYTES % (AUTO) 12 % (0-12); NEUTROPHILS # (AUTO) 2.9 10^3/uL (1.8-7.8); NEUTROPHILS % (AUTO) 44 % (42-75); PLATELET COUNT 132 10^3/uL (130-400); WHITE BLOOD COUNT 6.5 10^3/uL (4.3-11.0)
[2021-01-07 14:30] LABS: ALBUMIN 3.8 GM/DL (3.2-4.5); BILIRUBIN,TOTAL 0.6 MG/DL (0.1-1.0); CALCIUM 9.4 MG/DL (8.5-10.1); CREATININE SERUM 0.64 MG/DL (0.60-1.30); POTASSIUM 4.3 MMOL/L (3.6-5.0); TOTAL PROTEIN 6.1 GM/DL (6.4-8.2)
== END ==
LOC: ONC 13:48
PROVIDERS: ATTEND Internal Medicine Hematology & Oncology
DX: C91.10 Chronic lymphocytic leukemia of B-cell type not having achieved remission (principal); E11.42 Type 2 diabetes mellitus with diabetic polyneuropathy; I10 Essential (primary) hypertension; E78.00 Pure hypercholesterolemia, unspecified; D69.59 Other secondary thrombocytopenia; Z86.16 Personal history of COVID-19; Z79.4 Long term (current) use of insulin; Z79.899 Other long term (current) drug therapy
CPT/HCPCS: 80053; 83615; 85025; G0463; 99213